=== PATIENT | male | born 1980 | race Caucasian/White ===

== ENCOUNTER 2017-11-20 20:20 | Emergency (ER) | payer OTHER ==
[~2017-11-20] VITALS: Ht 175.3 cm; Wt 83.9 kg
[2017-11-20 20:32] VITALS: Ht 175.3 cm; Wt 83.9 kg
[2017-11-20 21:32] VITALS: BP 121/77
== END 2017-11-20 21:53 | disposition home or self-care (01) ==
LOC: ED 20:20
DX: M27.2 Inflammatory conditions of jaws (principal); E11.9 Type 2 diabetes mellitus without complications
CPT/HCPCS: J2001

== ENCOUNTER 2018-02-05 16:56 | Emergency (ER) | payer OTHER ==
[~2018-02-05] VITALS: Ht 175.3 cm; Wt 81.6 kg
[2018-02-05 17:02] VITALS: Ht 175.3 cm; Wt 81.6 kg
[2018-02-05 18:17] LABS: microscopic required? NO
[2018-02-05 18:24] LABS: BASOPHIL % 0.5 % (0-2); PLATELET COUNT 250 x10^3mcL (130-400); RED CELL DISTRIBUTION WIDTH 13.2 % (11.5-14.5)
[2018-02-05 18:29] LABS: UA SPECIFIC GRAVITY 1.015 (1.005-1.035); urine erythrocyte NEGATIVE (NEGATIVE)
[2018-02-05 18:32] LABS: AMPHETAMINE QUAL UR POSITIVE (See below)
[2018-02-05 18:38] LABS: ALBUMIN 4.3 g/dL (3.4-5.0); ALKALINE PHOSPHATASE 147 U/L (46-116); ALT/SGPT 65 U/L (16-63); AST/SGOT 39 U/L (15-37); BILIRUBIN TOTAL 0.64 mg/dL (0.20-1.00); CALCIUM 9.5 mg/dL (8.5-10.1); CARBON DIOXIDE 28.2 mmol/L (21-32); CHLORIDE SERUM 98 mmol/L (98-107); CREATININE SERUM 1.2 mg/dL (0.7-1.3); FREE T4 1.22 ng/dL (0.76-1.46); GFR1 > 60 mL/min; POTASSIUM SERUM 4.4 mmol/L (3.5-5.1); SODIUM SERUM 138 mmol/L (136-145)
[2018-02-05 18:39] LABS: TOTAL PROTEIN, SERUM 8.8 g/dL (6.4-8.2)
[2018-02-05 18:41] LABS: GLUCOSE SERUM 466 mg/dL (74-106)
[2018-02-05 20:43] VITALS: BP 120/76
== END 2018-02-05 20:44 | disposition other institution (70) ==
LOC: ED 16:56
PROVIDERS: Emergency Medicine
DX: E11.65 Type 2 diabetes mellitus with hyperglycemia (principal)
CPT/HCPCS: 82962; 83880; 84439; J1815; J7030

== ENCOUNTER 2018-02-05 16:56 | Emergency (ER) | payer OTHER | END 2018-02-05 20:44 | disposition other institution (70) | LOC: ED 16:56 | DX: Z02.89 Encounter for other administrative examinations (principal) ==

== ENCOUNTER 2018-05-22 02:12 | Emergency (ER) | payer OTHER ==
[~2018-05-22] VITALS: Ht 175.3 cm; Wt 90.7 kg
[2018-05-22 02:30] VITALS: Ht 175.3 cm; Wt 90.7 kg
[2018-05-22 04:29] VITALS: BP 109/75
== END 2018-05-22 04:29 | disposition other institution (70) ==
LOC: ED 02:12
DX: E11.65 Type 2 diabetes mellitus with hyperglycemia (principal); F15.90 Other stimulant use, unspecified, uncomplicated; F17.200 Nicotine dependence, unspecified, uncomplicated
CPT/HCPCS: 82962; 99406; J1815

== ENCOUNTER 2018-05-22 02:12 | Emergency (ER) | payer OTHER | END 2018-05-22 04:29 | disposition other institution (70) | LOC: ED 02:12 | DX: Z02.89 Encounter for other administrative examinations (principal) ==

== ENCOUNTER 2019-04-24 18:46 | Emergency (ER) | payer SELFPAY ==
[~2019-04-24] VITALS: Ht 172.7 cm; Wt 95.3 kg
[2019-04-24 21:02] VITALS: BP 126/84
== END 2019-04-24 21:03 | disposition home or self-care (01) ==
LOC: ED 18:46
DX: J04.0 Acute laryngitis (principal); E11.9 Type 2 diabetes mellitus without complications
CPT/HCPCS: J1100; J1885

== ENCOUNTER 2019-06-08 22:44 | Emergency (ER) | payer SELFPAY ==
[~2019-06-08] VITALS: Ht 175.3 cm; Wt 95.3 kg
[2019-06-08 22:45] VITALS: BP 126/57; Ht 175.3 cm; Wt 95.3 kg
== END 2019-06-08 23:28 | disposition other institution (70) ==
LOC: ED 22:44
DX: E11.9 Type 2 diabetes mellitus without complications (principal); Z13.89 Encounter for screening for other disorder
CPT/HCPCS: 82962

== ENCOUNTER 2019-06-08 23:26 | Emergency (ER) | payer OTHER | END 2019-06-08 23:28 | disposition other institution (70) | LOC: ED 23:26 | DX: Z02.89 Encounter for other administrative examinations (principal) ==